=== PATIENT | female | born 1985 | race Caucasian/White ===

== ENCOUNTER 2016-07-09 15:55 | Emergency (ER) | payer MEDICAID ==
[2016-07-09 16:20] VITALS: BP 113/67
--- NOTE | 2016-07-09 16:37 | EDM.PDOC ---
ED HISTORY OF PRESENT ILLNESS - General Chief Complaint: Respiratory Problem Stated Complaint: FLU Time Seen by Provider: 07/09/16 16:32 Source: Reports: Patient, RN notes reviewed History Limitations: Reports: No limitations - History of Present Illness INITIAL COMMENTS - FREE TEXT/NARRATIVE: 30-year-old female presents emergency Department with a complaint of fever and body aches she has 2 family members with recent positive disclosure of influenza B she's been ill for about 12 hours - Related Data Allergies/ADRs: Allergies Allergy/AdvReac Type Severity Reaction Status Date / Time cefazolin [From Ancef] Allergy Hives Verified 07/09/16 16:12 Penicillins Allergy Hives Verified 07/09/16 16:12 Home Meds: Home Meds NK [No Known Home Meds] 07/09/16 [History] 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: , 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 , Other (see below) Other OB/BYN History: D and C Psychiatric History: Reports: Anxiety, Depression, PTSD Dermatologic History: Reports: Other (see below) Other Dermatologic History: acne - Infectious Disease History Infectious Disease History: Reports: Chicken pox - Past Surgical History HEENT Surgical History: Reports: Adenoidectomy, Myringotomy w tube(s), Tonsillectomy Social & Family History - Tobacco Use Smoking Status *Q: Current Every Day Smoker Years of Tobacco use: 10 Packs/Tins Daily: 1 Used Tobacco, but Quit: No Second Hand Smoke Exposure: Yes - Caffeine Use Caffeine Use: Reports: Coffee - Alcohol Use Days Per Week of Alcohol Use: 1 Number of Drinks Per Day: 1 Total Drinks Per Week: 1 - Recreational Drug Use Recreational Drug Use: Yes Drug Use in Last 12 Months: Yes Recreational Drug Type: Reports: Marijuana/Hashish Recreational Drug Use Frequency: Not Used In Over 1 Month ED ROS GENERAL - Review of Systems Review Of Systems: See Below Constitutional: Reports: fever HEENT: Reports: No symptoms Respiratory: Reports: No Symptoms Cardiovascular: Reports: No symptoms GI/Abdominal: Reports: No symptoms : Reports: no symptoms Musculoskeletal: Reports: muscle pain ED EXAM, GENERAL - Physical Exam Exam: See Below Exam Limited By: No limitations General Appearance: alert, WD/WN, no apparent distress Respiratory/Chest: no respiratory distress, lungs clear, normal breath sounds, no accessory muscle use Cardiovascular: regular rate, rhythm, no murmur Course - Vital Signs Last Recorded V/S: Last Vital Signs Temp 99.1 F 07/09/16 16:19 Pulse 85 07/09/16 16:19 Resp 16 07/09/16 16:19 BP 113/67 07/09/16 16:19 Pulse Ox 97 07/09/16 16:19 Departure - Departure Time of Disposition: 16:36 Disposition: Home, Self-Care 01 Condition: good Clinical Impression: Influenza B Forms: ED Department Discharge Additional Instructions: start Tamiflu 1 tablet twice a day for the next 5 days, Please followup with your primary care provider in 3-5 days if not better, please call return to the emergency department with worsening of symptoms. - Assessment/Plan Plan: Assessment Acuity = acute Site and laterality = suspected influenza B Etiology = viral Manifestations = fever, myalgias Location of injury = home Lab values = none Plan compared to treat with Tamiflu 75 mg by mouth twice a day x5 days follow up with primary care 3-5 days if no improvement Patient was in agreement with the plan all questions were answered, they were instructed to return to the emergency department or call for worsening symptoms. This note was dictated using Pickl[employer] voice recognition software please call with any questions.
== END 2016-07-09 16:57 | disposition home or self-care (01) ==
LOC: JP.ED 15:55
DX: J10.1 Influenza due to other identified influenza virus with other respiratory manifestations (principal); F17.210 Nicotine dependence, cigarettes, uncomplicated; Z88.0 Allergy status to penicillin; Z88.8 Allergy status to other drugs, medicaments and biological substances; Z96.22 Myringotomy tube(s) status; Z98.890 Other specified postprocedural states
CPT/HCPCS: 99283

== ENCOUNTER 2016-11-21 20:00 | Emergency (ER) | payer MEDICAID ==
[2016-11-21 20:18] VITALS: BP 131/83
[2016-11-21] MEDS ORDERED: Ondansetron 4 MG/2 ML SDV IVPUSH ONE (20:59)
[2016-11-21] MEDS ORDERED: Sodium Chloride 0.9% 1,000 ML IV SCH (21:00)
--- NOTE | 2016-11-21 21:29 | EDM.PDOC ---
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 still with bleeding. had fever and chills all day. denies any chest pain, shortness of breath. loss at 24 weeks; boy, unknown cause and one at about 6 weeks. D&C for early loss thinks blood type is A+ Onset: Sudden Duration: Hour(s): Location: Reports: Abdomen Quality: Reports: Other (denies any abdomen or pelvis pain) Improves with: Reports: None Worsens with: Reports: None Associated Symptoms: Reports: Fever/Chills, Nausea/Vomiting - Related Data Allergies Allergy/AdvReac Type Severity Reaction Status Date / Time cefazolin [From Anc] Allergy Hives Verified 07/09/16 16:12 Penicillins Allergy Hives Verified 07/09/16 16:12 Home Meds: Home Meds Ondansetron [Zofran ODT] 4 mg PO Q6H PRN 11/21/16 [History] Vit #108/Iron/FA [ One Tablet] 1 tab PO DAILY 11/21/16 [History ] 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: , 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 , Other (See Below) Other OB/BYN History: D and C Psychiatric History: Reports: Anxiety, Depression, PTSD Dermatologic History: Reports: Other (See Below) Other Dermatologic History: acne - Infectious Disease History Infectious Disease History: Reports: Chicken Pox - Past Surgical History HEENT Surgical History: Reports: Adenoidectomy, Myringotomy w Tube(s), Tonsillectomy Social & Family History - Tobacco Use Smoking Status *Q: Former Smoker Years of Tobacco use: 10 Packs/Tins Daily: 1 Used Tobacco, but Quit: Yes Month Tobacco Last Used: Second Hand Smoke Exposure: Yes - Caffeine Use Caffeine Use: Reports: Coffee - Alcohol Use Days Per Week of Alcohol Use: 1 Number of Drinks Per Day: 1 Total Drinks Per Week: 1 - Recreational Drug Use Recreational Drug Use: No Drug Use in Last 12 Months: Yes Recreational Drug Type: Reports: Marijuana/Hashish Recreational Drug Use Frequency: Not Used In Over 1 Month - Living Situation & Occupation Living situation: Reports: 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, 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 ED ROS GENERAL - Review of Systems Review Of Systems: See Below Constitutional: Reports: Fever, Chills, Other (daily morning sickness) HEENT: Reports: No Symptoms Respiratory: Reports: No Symptoms Cardiovascular: Reports: No Symptoms Endocrine: Reports: No Symptoms GI/Abdominal: Reports: Nausea, Vomiting, Other () : Reports: Other ( with new onset vaginal bleeding) Musculoskeletal: Reports: No Symptoms Skin: Reports: No Symptoms Neurological: Reports: No Symptoms Psychiatric: Reports: No Symptoms Hematologic/Lymphatic: Reports: No Symptoms Immunologic: Reports: No Symptoms ED EXAM, GENERAL - Physical Exam Exam: See Below Exam Limited By: No Limitations General Appearance: Alert Ears: Normal External Exam Nose: Normal Inspection Throat/Mouth: Normal Inspection Head: Atraumatic, Normocephalic Neck: Normal Inspection, Supple, Non-Tender, Full Range of Motion Respiratory/Chest: No Respiratory Distress, Lungs Clear Cardiovascular: Regular Rate, Rhythm GI/Abdominal: Normal Bowel Sounds, Soft, Non-Tender, No Organomegaly, No Distention, No Abnormal Bruit, No Mass, Pelvis Stable (Female) Exam: Adnexal Tenderness (left), Enlarged Uterus, Vaginal Bleeding Rectal (Female) Exam: Deferred Back Exam: Normal Inspection, Full Range of Motion, NT Extremities: Normal Inspection, Normal Range of Motion, Non-Tender, No Pedal Edema, Normal Capillary Refill Neurological: Alert, No Motor/Sensory Deficits Psychiatric: Normal Affect, Normal Mood Skin Exam: Warm, Dry, Intact, Normal Color, No Rash Lymphatic: No Adenopathy Course - Vital Signs Last Recorded V/S: Last Vital Signs Temp 36.6 C 11/21/16 20:07 Pulse 88 11/21/16 20:07 Resp 16 11/21/16 20:07 BP 131/83 11/21/16 20:07 Pulse Ox 99 11/21/16 20:07 - Orders/Labs/Meds Orders: Active Orders 24 hr Category Date Time Status OB 1st Tri Sgl 1st Gest [US] Stat Exams 11/21/16 21:03 Ordered Sodium Chloride 0.9% [Normal Saline] 1,000 ml Med 11/21/16 21:00 Active IV ASDIRECTED Medication Orders Sodium Chloride (Normal Saline) 1,000 mls @ 999 mls/hr IV ASDIRECTED LARISSA Last Admin: 11/21/16 21:20 Dose: 999 mls/hr Labs: Laboratory Tests 11/21/16 11/21/16 11/21/16 Range/Units 21:10 21:10 21:15 WBC 10.9 (4.5-11.0) K/uL RBC 3.88 (3.30-5.50) M/uL Hgb 12.1 (12.0-15.0) g/dL Hct 35.5 L (36.0-48.0) % MCV 92 (80-98) fL MCH 31 (27-31) pg MCHC 34 (32-36) % Plt Count 198 (150-400) K/uL Neut % (Auto) 70 H (36-66) % Lymph % (Auto) 20 L (24-44) % [place] % (Auto) 8 H (2-6) % Eos % (Auto) 1 L (2-4) % Baso % (Auto) 0 (0-1) % Sodium 140 (140-148) mmol/L Potassium 4.0 (3.6-5.2) mmol/L Chloride 103 (100-108) mmol/L Carbon Dioxide 26 (21-32) mmol/L Anion Gap 11.1 (5.0-14.0) mmol/L BUN 12 (7-18) mg/dL Creatinine 0.6 (0.6-1.0) mg/dL Est Cr Clr Drug Dosing 122.29 mL/min Estimated GFR (MDRD) > 60 (>60) Glucose 73 L (74-106) mg/dL Calcium 8.8 (8.5-10.1) mg/dL Urine Color Yellow Urine Appearance Clear Urine pH 5.0 (4.5-8.0) Ur Specific [place] 1.010 (1.008-1.030) Urine Protein Negative (NEGATIVE) mg/dL Urine Glucose (UA) Normal (NEGATIVE) mg/dL Urine Ketones 15 H (NEGATIVE) mg/dL Urine Occult Blood Negative (NEGATIVE) Urine Nitrite Negative (NEGATIVE) Urine Bilirubin Negative (NEGATIVE) Urine Urobilinogen Normal (NORMAL) mg/dL Ur Leukocyte Esterase Negative (NEGATIVE) Urine RBC Not seen (0-5) Urine WBC Not seen (0-5) Ur Epithelial Cells Rare Amorphous Sediment Not seen Urine Bacteria Few Urine Mucus Not seen Meds: Medications Generic Name Dose Route Start Last Admin Trade Name Annel PRN Reason Stop Dose Admin Sodium Chloride 1,000 mls @ 999 mls/hr 11/21/16 21:00 11/21/16 21:20 Normal Saline IV 999 mls/hr ASDIRECTED LARISSA Administration Discontinued Medications Generic Name Dose Route Start Last Admin Trade Name Annel PRN Reason Stop Dose Admin Ondansetron HCl 4 mg 11/21/16 20:59 11/21/16 21:33 Zofran IVPUSH 11/21/16 21:00 4 mg ONETIME ONE Administration - Re-Assessments/Exams Free Text/Narrative Re-Assessment/Exam: 11/21/16 21:37 IV fluids Normal Saline 1 liter IV Zofran 4mg OB ultrasound to evaluate 11/21/16 22:13 OB ultrasound limited show a single viable , IUP, at 7 weeks 6 days with EDC 07/04/2017 intrauterine evaluation does show area of fluid collection measures 2.0X1.9cmX2.0, concerns of a twin with loss. will need to await Radiology report. discuss preliminary finding with Patient, will discharge to home with pelvic rest, no work til 11/28/16 appt with OB Provider. Departure - Departure Time of Disposition: 22:29 Disposition: Home, Self-Care 01 Condition: Good Clinical Impression: Threatened - Discharge Information Forms: ED Department Discharge Care Plan Goals: Threaten Miscarriage -OB ultrasound shows a vial at 7 weeks 6 days, with vaginal bleeding -due date [facility] 2017 -pelvic rest til 11/28/2016 -advise to rest, no strenuous activities or high impact sports, no prolonged standing -drink 8 to 10 glasses of water per day -eat 3 meals a day plus snack -take vitamins as directed will give sick slip til 11/28/16 -keep OB appt on 11/28/16, call in morning to advise Provider of ER visit -return to ER immediately for any bleeding greater than on pad per hour, fever, chills, prolonged nausea, vomiting - Problem List & Annotations (1) Threatened SNOMED Code(s): 48011431 Code(s): O20.0 - THREATENED Status: Acute Priority: High Current Visit: Yes - Problem List Review Problem List Initiated/Reviewed/Updated: Yes - My Orders Last 24 Hours: My Active Orders 11/21/16 21:00 Sodium Chloride 0.9% [Normal Saline] 1,000 ml IV ASDIRECTED 11/21/16 21:03 OB 1st Tri Sgl 1st Gest [US] Stat - Assessment/Plan Last 24 Hours: My Active Orders 11/21/16 21:00 Sodium Chloride 0.9% [Normal Saline] 1,000 ml IV ASDIRECTED 11/21/16 21:03 OB 1st Tri Sgl 1st Gest [US] Stat Plan: Threaten Miscarriage -OB ultrasound shows a vial at 7 weeks 6 days, with vaginal bleeding -due date 2017 -pelvic rest til 11/28/2016 -advise to rest, no strenuous activities or high impact sports, no prolonged standing -drink 8 to 10 glasses of water per day -eat 3 meals a day plus snack -take vitamins as directed will give sick slip til 11/28/16 -keep OB appt on 11/28/16, call in morning to advise Provider of ER visit -return to ER immediately for any bleeding greater than on pad per hour, fever, chills, prolonged nausea, vomiting
--- NOTE | 2016-11-22 11:18 | US ---
OB 1st Tri Sgl 1st Gest HISTORY: vaginal bleeding at 8 weeks. lmp 09/29/16 FINDINGS: A single intrauterine gestational sac is identified. pole with cardiac activity is seen. heart rhythm is regular with a rate of 167 bpm. Amniotic fluid appears normal. Small yol k sac can be seen. [place]-rump length corresponds of an EGA of 7 weeks 6 days gestation. This gives a n EDC of 07/04/2017 +/- 1 week. There is a prominent subarachnoid hemorrhage adjacent to the gestatio nal sac measuring 2.0 x 1.9 x 2.0 cm. There is a small cystic area in this area which could be a sec ond gestational sac without evidence for pole or cardiac activity.. Probable corpus luteum cys t is noted on the left ovary. Maternal ovaries are otherwise unremarkable. IMPRESSION: Living intrauterine measuring 7 weeks 6 days +/- 1 week gestation as above. Ad jacent subchorionic hemorrhage is seen with a small cystic fluid collection which could be an anembr yonic twin gestation. No other complication is identified.
== END 2016-11-21 22:46 | disposition home or self-care (01) ==
LOC: JP.ED 20:00
DX: O20.0 Threatened abortion (principal); O99.341 Other mental disorders complicating pregnancy, first trimester; F41.9 Anxiety disorder, unspecified; F32.9 Major depressive disorder, single episode, unspecified; Z3A.01 Less than 8 weeks gestation of pregnancy; Z88.0 Allergy status to penicillin; Z88.8 Allergy status to other drugs, medicaments and biological substances; Z79.899 Other long term (current) drug therapy; Z96.22 Myringotomy tube(s) status; Z98.890 Other specified postprocedural states; Z87.891 Personal history of nicotine dependence
CPT/HCPCS: 36415; 76801; 80048; 81001; 85025; 96361; 96374; 99284; J2405; J7040

== ENCOUNTER 2016-12-12 17:12 | Emergency (ER) | payer MEDICAID ==
[2016-12-12 17:28] VITALS: BP 132/78
[2016-12-12] MEDS ORDERED: Ondansetron 4 MG/2 ML SDV IVPUSH ONE (17:39)
[2016-12-12] MEDS ORDERED: Sodium Chloride 0.9% 1,000 ML IV SCH ×2 (17:45→18:15)
--- NOTE | 2016-12-12 18:00 | EDM.PDOC ---
ED HPI GENERAL MEDICAL PROBLEM <Dmitri Eckert - Last Filed: 12/12/16 19:54> - General Source of Information: Reports: Patient, Family History Limitations: Reports: No Limitations - History of Present Illness Onset: Today Duration: Hour(s): Location: Reports: Abdomen, Other ( Pt states the cramping is better at this point. 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 She has not held anything down since last nite. She has done alot of vomiting for the entire preg. She states this was a twin preg. She aborted the one twin at 9 weeks. Pt is now having lot of cramping coming from her back and around. She has not had any spotting. 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 , Other (See Below) Other OB/BYN History: D and C Psychiatric History: Reports: Anxiety, Depression, PTSD Dermatologic History: Reports: Other (See Below) Other Dermatologic History: acne - Infectious Disease History Infectious Disease History: Reports: Chicken Pox - Past Surgical History HEENT Surgical History: Reports: Adenoidectomy, Myringotomy w Tube(s), Tonsillectomy Female Surgical History: Reports: D&C <Octavia Vargas - Last Filed: 12/17/16 07:07> Social & Family History - Tobacco Use Smoking Status *Q: Former Smoker Years of Tobacco use: 10 Packs/Tins Daily: 1 Used Tobacco, but Quit: Yes Month Tobacco Last Used: missael Second Hand Smoke Exposure: Yes - Caffeine Use Caffeine Use: Reports: Coffee - Alcohol Use Days Per Week of Alcohol Use: 1 Number of Drinks Per Day: 1 Total Drinks Per Week: 1 - Recreational Drug Use Recreational Drug Use: No Drug Use in Last 12 Months: Yes Recreational Drug Type: Reports: Marijuana/Hashish Recreational Drug Use Frequency: Weekly - Living Situation & Occupation Living situation: Reports: 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, with Family (works for the [employer].) Occupation: Employed <Octavia Vargas - Last Filed: 12/17/16 07:07> ED ROS GENERAL - Review of Systems Review Of Systems: See Below Constitutional: Reports: No Symptoms HEENT: Reports: No Symptoms Respiratory: Reports: No Symptoms Cardiovascular: Reports: No Symptoms Endocrine: Reports: No Symptoms GI/Abdominal: Reports: Abdominal Pain, Other ( cramping coming around from the back. ) : Reports: No Symptoms Musculoskeletal: Reports: No Symptoms Skin: Reports: No Symptoms <Octavia Vargas - Last Filed: 12/17/16 07:07> ED EXAM <Dmitri Eckert - Last Filed: 12/12/16 19:54> - Physical Exam Exam: See Below Exam Limited By: No Limitations General Appearance: Alert, Anxious, Mild Distress Ears: Normal TMs Nose: Normal Inspection Throat/Mouth: Normal Inspection Head: Atraumatic Neck: Normal Inspection Respiratory/Chest: No Respiratory Distress Cardiovascular: Regular Rate, Rhythm GI/Abdominal Exam: Soft, Other ( mild tenderness in the lower abdoman. fundus is slightly below the umbilus. ) Rectal Exam: Deferred <Octavia Vargas - Last Filed: 12/17/16 07:07> - Physical Exam Text/Narrative:: pt arrived with cramping which is coming around from the back. She is very lite headed. (Octavia Vargas) Course <Dmitri Eckert - Last Filed: 12/12/16 19:54> <Octavia Vargas - Last Filed: 12/17/16 07:07> - Vital Signs Last Recorded V/S: Last Vital Signs Temp 36.4 C 12/12/16 17:27 Pulse 67 12/12/16 17:27 Resp 16 12/12/16 17:27 BP 132/78 12/12/16 17:27 Pulse Ox 100 12/12/16 17:27 Orthostatic Blood Pressure [ 110/76 Standing] Orthostatic Blood Pressure [ 112/71 Sitting] Orthostatic Blood Pressure [ 118/79 Supine] - Orders/Labs/Meds Labs: Laboratory Tests 12/12/16 12/12/16 12/12/16 Range/Units 17:50 17:50 18:00 WBC 10.1 (4.5-11.0) K/uL RBC 3.76 (3.30-5.50) M/uL Hgb 11.7 L (12.0-15.0) g/dL Hct 34.5 L (36.0-48.0) % MCV 92 (80-98) fL MCH 31 (27-31) pg MCHC 34 (32-36) % Plt Count 216 (150-400) K/uL Neut % (Auto) 75 H (36-66) % Lymph % (Auto) 18 L (24-44) % [place] % (Auto) 6 (2-6) % Eos % (Auto) 1 L (2-4) % Baso % (Auto) 0 (0-1) % Sodium 137 L (140-148) mmol/L Potassium 3.4 L (3.6-5.2) mmol/L Chloride 104 (100-108) mmol/L Carbon Dioxide 23 (21-32) mmol/L Anion Gap 13.4 (5.0-14.0) mmol/L BUN 10 (7-18) mg/dL Creatinine 0.5 L (0.6-1.0) mg/dL Est Cr Clr Drug Dosing 147.78 mL/min Estimated GFR (MDRD) > 60 (>60) Glucose 74 (74-106) mg/dL Calcium 8.5 (8.5-10.1) mg/dL Total Bilirubin 0.3 (0.2-1.0) mg/dL AST 20 (15-37) U/L ALT 27 (12-78) U/L Alkaline Phosphatase 37 L (46-116) U/L Total Protein 6.7 (6.4-8.2) g/dL Albumin 3.3 L (3.4-5.0) g/dL Globulin 3.4 (2.3-3.5) g/dL Albumin/Globulin Ratio 1.0 L (1.2-2.2) Urine Color Yellow Urine Appearance Clear Urine pH 5.0 (4.5-8.0) Ur Specific [place] 1.030 (1.008-1.030) Urine Protein Negative (NEGATIVE) mg/dL Urine Glucose (UA) Normal (NEGATIVE) mg/dL Urine Ketones 15 H (NEGATIVE) mg/dL Urine Occult Blood Negative (NEGATIVE) Urine Nitrite Negative (NEGATIVE) Urine Bilirubin Negative (NEGATIVE) Urine Urobilinogen 1 (NORMAL) mg/dL Ur Leukocyte Esterase Negative (NEGATIVE) Urine RBC 0-5 (0-5) Urine WBC 0-5 (0-5) Ur Epithelial Cells Many Amorphous Sediment Not seen Urine Bacteria Rare Urine Mucus Few Meds: Medications Discontinued Medications Generic Name Dose Route Start Last Admin Trade Name Freq PRN Reason Stop Dose Admin Sodium Chloride 1,000 mls @ 999 mls/hr 12/12/16 17:45 12/12/16 18:35 Normal Saline IV 999 mls/hr ASDIRECTED LARISSA Administration Sodium Chloride 1,000 mls @ 999 mls/hr 12/12/16 18:15 Normal Saline IV ASDIRECTED LARISSA Ondansetron HCl 4 mg 12/12/16 17:39 12/12/16 18:37 Zofran IVPUSH 12/12/16 17:40 4 mg ONETIME ONE Administration - Re-Assessments/Exams Free Text/Narrative Re-Assessment/Exam: 12/12/16 18:26 us showed a active fetus. She has a subchrionic bleed which has been followed and is smaller. She does have alot of gas on the us. 12/17/16 07:05 pt was given 2 liters of fluid nd zoforan. She is feeling better since that was given. Pt does state that she has been constipated and has been using miralax. (Octavia Vargas) Departure - Departure Time of Disposition: 20:00 Condition: Good <Dmitri Eckert - Last Filed: 12/12/16 19:54> <Octavia Vargas - Last Filed: 12/17/16 07:07> - Departure Disposition: Home, Self-Care 01 Clinical Impression: Mild dehydration Hyperemesis Qualifiers: Vomiting type: unspecified Nausea presence: with nausea Qualified Code(s): R11.2 - Nausea with vomiting, unspecified - Discharge Information Instructions: Hyperemesis Gravidarum, Dehydration, Adult Referrals: Michelle Louise CNM [Primary Care Provider] - Forms: ED Department Discharge Additional Instructions: Continue Zofran as needed for nausea. Recheck with your OB doctor [place]. Return as needed.
--- NOTE | 2016-12-13 09:18 | US ---
OB Ltd 1 or More Fetus HISTORY: Severe cramping. COMPARISON: Prior ultrasound 11/28/2016. FINDINGS: Transpelvic exam was performed. There is a early live intrauterine gestation with a crown-r ump length of 4.6 cm compatible with a ultrasound age of 11 weeks 4 days estimated date of confinemen t is 06/29/2017. heart rate 165 bpm. Yolk sac identified. Subchorionic hemorrhage again seen and is slightly smaller this measures 1.3 x 1.3 x 1.2 cm. Previous ly this measured 1.9 cm. Ovaries not seen due to overlying bowel gas. Impression: 1. Early live intrauterine gestation 11 weeks 4 days. 2. Small subchorionic hemorrhage which is smaller than previous study of 11/28/2016. Ultrasound Department gave today's report to the ER physician at the time of today's study.
== END 2016-12-12 20:30 | disposition home or self-care (01) ==
LOC: JP.ED 17:12
DX: O21.1 Hyperemesis gravidarum with metabolic disturbance (principal); E86.0 Dehydration; O99.341 Other mental disorders complicating pregnancy, first trimester; F41.9 Anxiety disorder, unspecified; F32.9 Major depressive disorder, single episode, unspecified; Z96.22 Myringotomy tube(s) status; Z98.890 Other specified postprocedural states; Z79.899 Other long term (current) drug therapy; Z87.891 Personal history of nicotine dependence; Z88.0 Allergy status to penicillin; Z88.2 Allergy status to sulfonamides; Z88.8 Allergy status to other drugs, medicaments and biological substances; Z3A.11 11 weeks gestation of pregnancy
CPT/HCPCS: 36415; 76815; 80053; 81001; 85025; 96361; 96374; 99284; J2405; J7040